=== PATIENT | male | born 1980 | race Caucasian/White ===

== ENCOUNTER 2017-03-13 07:53 | Day surgery (SDC) | payer MEDICAID, SELFPAY ==
[2017-03-12 11:28] VITALS: BMI 33.2
[2017-03-13] VITALS (10 sets, daily range): BP systolic 112–151; BP diastolic 63–92; PULSE 60–97; RESP 16–18; TEMP 36.1–36.4; O2SAT 95–99
--- NOTE | 2017-03-13 09:12 | P.PN_ITS ---
[facility] Anesthesia Checklist - Patient Identification Patient Identification: Arm Band, Verbal (Name & ) - Structural Data Admitted From: Home Planned Operative Procedure/s: excision back lession Consent for Planned Operative Procedure(s) Verified: Yes Verified Documents: Surgical Consent - Chart Verification Results Verified: CBC, BMP - Additional verifications Patient : No Anesthesia Reactions: No Hx Blood Transfusions: No Blood Transfusion Reaction: No Cephalosporin Allergy: No Previous Colonoscopy: No - Cardiovascular Assessment Heart Sounds: S1 & S2 Pulse Strength: Baseline Pulse Rhythm: Regular Peripheral Edema: No - Airway Assessment C-Spine Mobility Assessed: Yes TMJ Mobility Assessed: Yes Dentition: Good Dentition - Neurological Assessment Level of Consciousness: Awake, Alert, Appropriate Hx Seizures: No Numbness or tingling in extremities: No - Anesthesia Plan Anesthesia Risk discussed: Yes ASA Class: I Anesthesia Type: General [facility] Anesthesia HX I have reviewed the patient's past medical history: Yes Medical History: Denies:: Cancer, Diabetes Mellitus Type 1, Diabetes Mellitus Type 2, MRSA, Seizures Other Medical History: Denies: Blood Transfusion Reaction Other Surgeries: Yes: No Previous Surgery Amputation: No Fractures: Yes (r forearm) *Family Hx:: Cancer, Hypertension, Stroke
--- NOTE | 2017-03-13 10:32 | HMH.OPNOTE ---
Date of procedure: 03/13/17 Pre-op Diagnosis:: Mid back mass (cyst versus lipoma) -2.5 cm Post-op diagnosis:: same Procedure performed:: Excision of 2.5 cm mid back mass Surgeon:: Javier Basilio MD GRID CASTING MACHINE OPERATOR HELPER:: Misha Bell Anesthesia: LMA Estimated blood loss (mL): 10 Operative findings:: 2.5 cm excised in toto and passed off for pathologic evaluation. Operative note:: After informed consent was in, the patient was taken to the operating room and placed in the supine position. General anesthesia was induced and he was transferred to a right lateral decubitus position. His back was prepped and draped in a sterile fashion. After infiltration with local anesthetic an elliptical incision was made around the lesion. The deep subcutaneous tissue was dissected with a combination of scalpel and electrocautery. The lesion was excised in toto and passed off for pathologic evaluation. Electrocautery was utilized to achieve hemostasis. Skin was closed with interrupted 4-0 nylon and dressings were applied. The patient was transferred to recovery in stable condition after reversal of anesthetics. Condition: stable Disposition: PACU Specimens:: Mid back mass Complications:: No immediate
--- NOTE | 2017-03-13 10:35 | P.OP_ITS ---
Date of procedure: 03/13/17 Pre-op Diagnosis:: Mid back mass (cyst versus lipoma) -2.5 cm Post-op diagnosis:: same Procedure performed:: Excision of 2.5 cm mid back mass Surgeon:: Javier Basilio MD DIVINITY TEACHER:: Misha Bell Anesthesia: LMA Estimated blood loss (mL): 10 Operative findings:: 2.5 cm excised in toto and passed off for pathologic evaluation. Operative note:: After informed consent was in, the patient was taken to the operating room and placed in the supine position. General anesthesia was induced and he was transferred to a right lateral decubitus position. His back was prepped and draped in a sterile fashion. After infiltration with local anesthetic an elliptical incision was made around the lesion. The deep subcutaneous tissue was dissected with a combination of scalpel and electrocautery. The lesion was excised in toto and passed off for pathologic evaluation. Electrocautery was utilized to achieve hemostasis. Skin was closed with interrupted 4-0 nylon and dressings were applied. The patient was transferred to recovery in stable condition after reversal of anesthetics. Condition: stable Disposition: PACU Specimens:: Mid back mass Complications:: No immediate
--- NOTE | 2017-03-13 10:45 | P.PN_ITS ---
[facility] Anesthesia Record Part I Intake, IV Amount: 500 Estimated blood loss (mL): 10 Urine output (mL): 0 Blood Products used (#): none Blood Pressure: 112/63 SaO2: 97 Pulse Rate: 97 Respiratory Rate: 18 Temperature: 97.0 F Patient is:: Drowsy, Nasal O2 Stable to PACU at:: 10:43
--- NOTE | 2017-03-13 10:47 | P.PN_ITS ---
[facility] Anesthesia Record Part II Discharge Time: 11:13 Destination: Surgical Day Care (OP Surgery) PACU nurse assessment reviewed?: Yes Patient Condition:: Good Anesthesia Complications:: None
== END 2017-03-13 11:48 | disposition home or self-care (01) ==
LOC: OR 07:55
PROVIDERS: PCP Emergency Medicine; Visit Provider Surgery
PROC: (CPT 11403; principal; 2017-03-13 09:45)
DX: D23.5 Other benign neoplasm of skin of trunk (principal); R20.8 Other disturbances of skin sensation
CPT/HCPCS: 11403; 96374; J0131

== ENCOUNTER → 2021-09-17 06:58 | Outpatient (CLI) | payer MEDICAID, SELFPAY ==
[2021-09-17 19:11] LABS: Basophils # 0.1 K/mm3 (0-0.2); Basophils % 0.9 % (0.1-2.0); Eosinophils # 0.2 K/mm3 (0.0-0.4); Eosinophils % 1.8 % (0.1-12.0); Hematocrit 48.6 % (42.0-52.0); Hemoglobin 15.6 g/dL (14.1-18.0); Lymphocytes # 2.5 K/mm3 (0.7-4.5); Lymphocytes % 29.4 % (10-50); Mean Corpuscular HGB Conc 32.1 g/dL (31.8-35.4); Mean Corpuscular Hemoglobin 31.2 pg (27.0-31.2); Mean Corpuscular Volume 97.3 fl (80-94); Mean Platelet Volume 8.7 fl (7.4-10.4); Monocytes # 0.7 K/mm3 (0.1-1.0); Monocytes % 7.9 % (1.7-9.3); Neutrophils # 5.2 K/mm3 (1.8-7.8); Platelet Count 380 K/mm3 (142-424); Red Blood Count 4.99 M/mm3 (4.60-6.20); Red Cell Distribution Width 13.6 % (11.5-17.5); White Blood Count 8.6 K/mm3 (4.8-10.8)
[2021-09-17 19:15] LABS: Chloride 106 mmol/L (98-107); Potassium 4.6 mmoL/L (3.5-5.1); Sodium 141 mmol/L (136-145)
[2021-09-17 19:18] LABS: Alanine Aminotransferase 41 U/L (12-78); Albumin Level 4.9 g/dl (3.5-5.0); Albumin/Globulin Ratio 1.7 (1.1-1.8); Alkaline Phosphatase 58 U/L (38-126); Anion Gap 15.6 mEq/L (5-15); Aspartate Amino Transferase 37 U/L (17-59); Bilirubin,Total 0.6 mg/dl (0.2-1.3); Calcium 9.9 mg/dl (8.4-10.2); Carbon Dioxide 24 mmol/L (22.0-30.0); Cholesterol 177 mg/dl (140-200); Globulin 2.9 g/dL (1.3-3.2); Glucose 87 mg/dl (74-100); Total Protein,Serum 7.8 g/dl (6.3-8.2); Triglycerides 364 mg/dl (30-150); VLDL Cholesterol 73 mg/dL (0-40)
[2021-09-17 19:19] LABS: Chol/HDL Ratio 5.7 (1-3.5); HDL Cholesterol 31 mg/dl (40-60)
[2021-09-17 19:23] LABS: Blood Urea Nitrogen 15 mg/dl (9-20); Estimated Glomerular Filt Rate 94 ml/min (>60); GFR (African American) 114 ML/MIN (>60)
[2021-09-17 21:02] LABS: Vitamin B12 535 pg/mL (239-931)
[2021-09-17 21:06] LABS: Thyroid Stimulating Hormone 1.99 uIU/mL (0.465-4.68)
[2021-09-19 15:23] LABS: Direct LDL Cholesterol 96 mg/dL (100-129)
== END ==
PROVIDERS: PCP Physician Assistant; Visit Provider Physician Assistant
DX: R42 Dizziness and giddiness (principal); I10 Essential (primary) hypertension; F41.9 Anxiety disorder, unspecified; E66.9 Obesity, unspecified; Z68.36 Body mass index [BMI] 36.0-36.9, adult
CPT/HCPCS: 80053; 80061; 82306; 82607; 84443; 85025

== ENCOUNTER → 2022-04-15 23:50 | Outpatient (CLI) | payer MEDICAID, SELFPAY ==
[2022-04-15 18:24] LABS: Basophils # 0.1 K/mm3 (0-0.2); Basophils % 1.2 % (0.1-2.0); Eosinophils # 0.4 K/mm3 (0.0-0.4); Eosinophils % 4.4 % (0.1-12.0); Hematocrit 45.9 % (42.0-52.0); Hemoglobin 15.1 g/dL (14.1-18.0); Lymphocytes # 2.8 K/mm3 (0.7-4.5); Lymphocytes % 29.5 % (10-50); Mean Corpuscular HGB Conc 32.9 g/dL (31.8-35.4); Mean Corpuscular Hemoglobin 30.6 pg (27.0-31.2); Mean Corpuscular Volume 93.1 fl (80-94); Mean Platelet Volume 8.7 fl (7.4-10.4); Monocytes # 0.7 K/mm3 (0.1-1.0); Monocytes % 7.1 % (1.7-9.3); Neutrophils # 5.4 K/mm3 (1.8-7.8); Neutrophils % 57.9 % (37.0-80.0); Platelet Count 366 K/mm3 (142-424); Red Blood Count 4.93 M/mm3 (4.60-6.20); Red Cell Distribution Width 13.3 % (11.5-17.5); White Blood Count 9.3 K/mm3 (4.8-10.8)
[2022-04-15 18:56] LABS: Alanine Aminotransferase 45 U/L (12-78); Albumin Level 4.6 g/dl (3.5-5.0); Albumin/Globulin Ratio 1.8 (1.1-1.8); Alkaline Phosphatase 50 U/L (38-126); Anion Gap 10.6 mEq/L (5-15); Aspartate Amino Transferase 32 U/L (17-59); Bilirubin,Total 0.4 mg/dl (0.2-1.3); Blood Urea Nitrogen 13 mg/dl (9-20); Calcium 9.1 mg/dl (8.4-10.2); Carbon Dioxide 26 mmol/L (22.0-30.0); Chloride 105 mmol/L (98-107); Chol/HDL Ratio 5.9 (1-3.5); Cholesterol 188 mg/dl (140-200); Estimated Glomerular Filt Rate 83 ml/min (>60); GFR (African American) 101 ML/MIN (>60); Globulin 2.5 g/dL (1.3-3.2); Glucose 89 mg/dl (74-100); HDL Cholesterol 32 mg/dl (40-60); Potassium 4.6 mmoL/L (3.5-5.1); Sodium 137 mmol/L (136-145); Total Protein,Serum 7.1 g/dl (6.3-8.2)
[2022-04-15 19:06] LABS: Direct LDL Cholesterol 106.45 mg/dL (100-129)
[2022-04-15 19:07] LABS: Free T4 (Free Thyroxine) 0.97 ng/dl (0.78-2.19)
[2022-04-15 19:11] LABS: 25-OH Vitamin D, Total 25.5 ng/mL (30-100)
[2022-04-15 19:26] LABS: Thyroid Stimulating Hormone 2.36 uIU/mL (0.465-4.68); Triglycerides 418 mg/dl (30-150)
== END ==
PROVIDERS: PCP Physician Assistant; Visit Provider Physician Assistant
DX: R53.83 Other fatigue (principal); K59.00 Constipation, unspecified; E03.9 Hypothyroidism, unspecified; E55.9 Vitamin D deficiency, unspecified
CPT/HCPCS: 80053; 80061; 82306; 84439; 84443; 85025

== ENCOUNTER 2023-03-13 22:57 | Outpatient (CLI) | payer MEDICAID, SELFPAY ==
[2023-03-13 17:51] LABS: Basophils # 0.1 K/mm3 (0-0.2); Basophils % 0.9 % (0.1-2.0); Eosinophils # 0.2 K/mm3 (0.0-0.4); Eosinophils % 2.7 % (0.1-12.0); Hematocrit 45.5 % (42.0-52.0); Hemoglobin 15.5 g/dL (14.1-18.0); Lymphocytes % 30.6 % (10-50); Mean Corpuscular HGB Conc 33.9 g/dL (31.8-35.4); Mean Corpuscular Hemoglobin 31.8 pg (27.0-31.2); Mean Corpuscular Volume 93.8 fl (80-94); Mean Platelet Volume 8.8 fl (7.4-10.4); Monocytes # 0.4 K/mm3 (0.1-1.0); Monocytes % 6.3 % (1.7-9.3); Neutrophils # 3.9 K/mm3 (1.8-7.8); Neutrophils % 59.5 % (37.0-80.0); Platelet Count 330 K/mm3 (142-424); Red Blood Count 4.85 M/mm3 (4.60-6.20); Red Cell Distribution Width 13.1 % (11.5-17.5); White Blood Count 6.6 K/mm3 (4.8-10.8)
[2023-03-13 17:55] LABS: Alanine Aminotransferase 50 U/L (12-78); Albumin Level 4.7 g/dl (3.5-5.0); Albumin/Globulin Ratio 1.7 (1.1-1.8); Alkaline Phosphatase 53 U/L (38-126); Anion Gap 12.8 mEq/L (5-15); Aspartate Amino Transferase 33 U/L (17-59); Bilirubin,Total 0.5 mg/dl (0.2-1.3); Blood Urea Nitrogen 16 mg/dl (9-20); Calcium 9.8 mg/dl (8.4-10.2); Carbon Dioxide 30 mmol/L (22.0-30.0); Chloride 103 mmol/L (98-107); Creatine Kinase 113 U/L (55-170); Estimated Glomerular Filt Rate 83 ml/min (>60); GFR (African American) 100 ML/MIN (>60); Globulin 2.7 g/dL (1.3-3.2); Glucose 110 mg/dl (74-100); Potassium 4.8 mmoL/L (3.5-5.1); Sodium 141 mmol/L (136-145); Total Protein,Serum 7.4 g/dl (6.3-8.2); Uric Acid 6.7 mg/dl (3.5-8.5)
[2023-03-13 18:00] LABS: C-Reactive Protein 6.6 mg/L (0-4)
[2023-03-13 18:12] LABS: Erythrocyte Sedimentation Rate 5 mm/hr (0-15)
[2023-03-16 12:30] LABS: Anti-Centromere B Antibodies <0.2 AI (0.0-0.9); Anti-DNA (DS) Ab Qn <1 IU/mL (0-9); Anti-Jo-1 <0.2 AI (0.0-0.9); Anti-Smith Antibody <0.2 AI (0.0-0.9); Antichromatin Antibodies <0.2 AI (0.0-0.9); Antiscleroderma-70 Antibodies <0.2 AI (0.0-0.9); RNP Antibodies <0.2 AI (0.0-0.9); Sjogren's Anti-SS-A <0.2 AI (0.0-0.9); Sjogren's Anti-SS-B <0.2 AI (0.0-0.9)
[2023-03-16 13:09] LABS: Anti-Cyclic Citrullinated Pept 8 units (0-19)
== END 2023-03-13 23:59 ==
LOC: LAB.DROPOF 22:57
PROVIDERS: PCP Physician Assistant; Visit Provider Physician Assistant
DX: M25.561 Pain in right knee (principal); M25.562 Pain in left knee; M25.50 Pain in unspecified joint; I10 Essential (primary) hypertension
CPT/HCPCS: 80053; 82550; 84550; 85025; 85651; 86140; 86200; 86225; 86235; 86431

== ENCOUNTER 2023-03-25 10:49 | Outpatient (CLI) | payer MEDICAID, SELFPAY ==
--- NOTE | 2023-03-25 10:49 | US_ITS ---
FINAL REPORT TECHNIQUE: Ultrasound images of the kidneys and bladder were obtained. CLINICAL HISTORY: hypertension FINDINGS: The right kidney measures 10.0 cm in length. It is normal in echogenicity. There is no hydronephrosis. The left kidney measures 10.7 cm in length. It is normal in echogenicity. There is no hydronephrosis. The spleen is unremarkable. IMPRESSION: Normal renal ultrasound. Reviewed, Interpreted and Dictated by Richard Blanco III, MD Transcribed by Dora Hawkins Authenticated and [facility]
== END 2023-03-25 23:59 ==
LOC: RAD 10:49
PROVIDERS: PCP Physician Assistant; Visit Provider Physician Assistant
DX: I10 Essential (primary) hypertension (principal)
CPT/HCPCS: 76770

== ENCOUNTER 2023-04-08 08:06 | Outpatient (CLI) | payer MEDICAID, SELFPAY ==
--- NOTE | 2023-04-08 08:09 | CA_ITS ---
FINAL REPORT TECHNIQUE: Grayscale, color Doppler and duplex Doppler ultrasound of the kidneys, aorta and renal arteries was performed. Multiple velocities were measured. CLINICAL HISTORY: HTN COMPARISON: None FINDINGS: Aorta velocity: 117 cm/sec Right kidney: 10.3 cm. No evidence of hydronephrosis or mass. Right intrarenal RI: 0.73 Right renal artery velocity: 139 cm/sec. Right RAR (Renal artery-Aortic Ratio): 1.2 Left Kidney: 10.6 cm. No evidence of hydronephrosis or mass. Left intrarenal RI: 0.72 Left renal artery velocity: 183 cm/sec. Left RAR (Renal Artery-Aortic Ratio): 1.6 IMPRESSION: No evidence of significant renal artery stenosis. CT angiogram or postcontrast MR angiogram would be more sensitive for evaluation of possible renal artery stenosis. Reviewed, Interpreted and Dictated by Thalia Byers MD Transcribed by Melanie Schroeder Authenticated and [facility]
== END 2023-04-08 23:59 ==
LOC: RT 08:07
PROVIDERS: PCP Physician Assistant; Visit Provider Physician Assistant
DX: I10 Essential (primary) hypertension (principal); Z79.899 Other long term (current) drug therapy
CPT/HCPCS: 93976

== ENCOUNTER 2023-04-29 08:21 | Outpatient (CLI) | payer MEDICAID, SELFPAY ==
--- NOTE | 2023-04-29 08:21 | US_ITS ---
FINAL REPORT CLINICAL HISTORY: post prandial vomiting FINDINGS: Insert RIGHT UPPER QUADRANT ULTRASOUND Sonographic images of the right upper quadrant were obtained. The pancreas is partially obscured. There is fatty infiltration of the liver. The gallbladder appears normal without evidence of gallstones. The common duct measures 3 mm. There is a 6 mm echogenic focus in the right kidney, may represent a stone. IMPRESSION: Fatty liver. Possible right renal stone. Reviewed, Interpreted and Dictated by Richard Blanco III, MD Transcribed by Dora Hawkins Authenticated and . [facility]
== END 2023-04-29 23:59 ==
LOC: RAD 08:21
PROVIDERS: PCP Physician Assistant; Visit Provider Physician Assistant
DX: R11.10 Vomiting, unspecified (principal)
CPT/HCPCS: 76705

== ENCOUNTER 2023-05-22 10:26 | Outpatient (CLI) | payer MEDICAID, SELFPAY ==
--- NOTE | 2023-05-22 10:26 | NM_ITS ---
FINAL REPORT CLINICAL HISTORY: right upper quadrant pain 10:45 am 8.80 mci tc choletec 2.5 mcg of cck no pain during cck COMPARISON: None FINDINGS: Sequential anterior projection images of the abdomen were obtained after the intravenous injection of 8.80 mCi technetium 99m Choletec. There is normal uptake of radiotracer by the liver. The bile ducts and bowel activity are visualized by 5 minutes. Gallbladder activity is seen by 20 minutes. After 1 hour, 2.5 ?g of CCK was injected intravenously for calculation of gallbladder ejection fraction. The gallbladder ejection fraction is 87 %, which is within normal limits. IMPRESSION: No evidence of cystic duct or bile duct obstruction. Normal gallbladder ejection fraction of 87 %. Reviewed, Interpreted and Dictated by Richard Blanco III, MD Transcribed by Ann Mcdermott Authenticated and [facility]
[2023-05-22] MEDS: SODIUM CHLORIDE 0.9% 10ML SYR (RAD ONLY) 10 ML IV (11:47)
[2023-05-22] MEDS: SINCALIDE 2.5 MCG in 0.9 % SODIUM CHLORIDE 50 ML 100 MCG IV (11:47)
[2023-05-22] MEDS: ISOTOPE CHOLETECH;1 DOSE (UP TO 15 MCI) IV (11:47)
== END 2023-05-22 23:59 | disposition home or self-care (01) ==
LOC: RAD 10:26
PROVIDERS: PCP Physician Assistant; Visit Provider Physician Assistant
DX: R10.11 Right upper quadrant pain (principal)
CPT/HCPCS: 78227; A9537; J2805

== ENCOUNTER 2023-06-18 12:21 | Outpatient (CLI) | payer MEDICAID, SELFPAY ==
--- NOTE | 2023-06-18 12:28 | XR_ITS ---
FINAL REPORT CLINICAL HISTORY: right knee pain FINDINGS: Right knee Three views were obtained. There is no acute fracture or dislocation. The joint spaces appear normal. There is chronic calcification in the region of the distal patellar tendon. IMPRESSION: No acute process. Reviewed, Interpreted and Dictated by Richard Blanco III, MD Transcribed by Dora Hawkins Authenticated and [facility]
--- NOTE | 2023-06-18 12:28 | XR_ITS ---
FINAL REPORT CLINICAL HISTORY: left knee pain FINDINGS: Left knee Three views were obtained. There is no acute fracture or dislocation. The joint spaces appear normal. No soft tissue abnormality is identified. IMPRESSION: No acute process. Reviewed, Interpreted and Dictated by Richard Blanco III, MD Transcribed by Dora Hawkins Authenticated and [facility]
== END 2023-06-18 23:59 | disposition home or self-care (01) ==
LOC: RAD 12:23
PROVIDERS: PCP Physician Assistant; Visit Provider Orthopaedic Surgery
DX: M25.561 Pain in right knee (principal); M25.562 Pain in left knee
CPT/HCPCS: 73562

== ENCOUNTER 2024-09-01 11:51 | Outpatient (CLI) | payer MEDICAID, SELFPAY ==
--- OUTSIDE RECORDS SUMMARY | 2024-09-01 11:54 | XMS_ITS | Encounter Summary ---
Author Organization [employer] ([place], [place], [place], [place]) Address [address] [place] [address] Care Team Providers Care Contract Engineer Name Role Phone Unavailable Primary Care Provider Unavailabl e Encounter Details Date Type Department Care Team (Late st Contact Info) Description 11/05/2019 Transcribed Document [facility] Family Medicine [facility] [place] [address] ProviderKelley MD [address] [place] [address] [id number] Social History Tobacco Use Types Packs/Day Years Used Date Smoking Tobacco: Never Assessed Sex and Gender Information Value Date Recorded Sex Assigned at Male 08/06/2021 8:45 PM CDT Legal Sex Male 8:45 PM CDT Gender Identity Male 08/06/2021 8:45 PM CDT Sexual Orientation Not on file documented as of this encounter Miscellaneous Notes * Cerner Conversion Note - Historical ProviderMD - 11/05/2019 1:45 PM CDT documented in this encounter Plan of Treatment Not on file documented as of this encounter Visit Diagnoses Not on filedocumented in this encounter
--- OUTSIDE RECORDS SUMMARY | 2024-09-01 11:54 | XMS_ITS | Encounter Summary ---
Author Organization [employer] ([place], [place], [place], [place]) Address [address] [place] [address] Care Team Providers Care Program Specialist Name Role Phone Unavailable Primary Care Provider Unavailabl e Encounter Details Date Type Department Care Team (Late st Contact Info) Description 11/05/2019 Transcribed Document [facility] Family Medicine [facility] [address] ProviderKelley MD [address] [place] [address] [id number] Social History Tobacco Use Types Packs/Day Years Used Date Smoking Tobacco: Never Assessed Sex and Gender Information Value Date Recorded Sex Assigned at Male 08/06/2021 8:45 PM CDT Legal Sex Male 8:45 PM CDT Gender Identity Male 08/06/2021 8:45 PM CDT Sexual Orientation Not on file documented as of this encounter Miscellaneous Notes * Cerner Conversion Note - Kelley ProviderMD - 11/05/2019 2:08 PM CDT ED Discharge Entered On: 11/05/2019 14:09 EDT Performed On: 11/05/2019 14:08 EDT by MIRI ESTRELLA RN Discharge Process Patient Disposition : Discharge Personal Belongings With Patient : Yes Patient Education Completed : Yes Teaching Evaluation : Verbalizes understanding Link to Valuables and Belongings form : No IV Discontinued : Not applicable MIRI ESTRELLA RN - 11/05/2019 14:08 EDT ED Discharge Discharge To : Home with ambulatory/outpatient follow-up Name of Receiving Facility/Provider : See instructions Mode Of Departure : Ambulatory Accompanied By : Significant other Discharge Instructions Reviewed With, Opportunity For Questions Given : Patient Prescriptions Given to Patient : Yes Number of Prescriptions Given : 1 MIRI ESTRELLA RN - 11/05/2019 14:08 EDT Electronically signed by Cintia [facility] Conversion Turning Machine Set Up Operator Cerner at 05/26/2022 3:02 PM CDT documented in this encounter Plan of Treatment Not on file documented as of this encounter Visit Diagnoses Not on filedocumented in this encounter
--- OUTSIDE RECORDS SUMMARY | 2024-09-01 11:54 | XMS_ITS | Clinical Summary ---
Author Organization [employer] ([place], [place], [place], [place]) Address [address] [place] [address] Care Team Providers Care Senior Animal Trainer Name Role Phone Unavailable Primary Care Provider Unavailabl e Social History Tobacco Use Types Packs/Day Years Used Date Smoking Tobacco: Never Assessed Sex and Gender Information Value Date Recorded Sex Assigned at Male 08/06/2021 8:45 PM CDT Legal Sex Male 8:45 PM CDT Gender Identity Male 08/06/2021 8:45 PM CDT Sexual Orientation Not on file Plan of Treatment Not on file
--- OUTSIDE RECORDS SUMMARY | 2024-09-01 11:54 | XMS_ITS | Referral Summary ---
Author Organization [employer] ([place], [place], [place], [place]) Address [address] [place] [address] Care Team Providers Care Tile Fitter Name Role Phone Unavailable Primary Care Provider [...]
--- OUTSIDE RECORDS SUMMARY | 2024-09-01 11:54 | XMS_ITS | Encounter Summary ---
Author Organization [employer] ([place], [place], [place], [place]) Address [address] [place] [address] Care Team Providers Care Insurance Clerk Name Role Phone Unavailable Primary Care Provider Unavailabl e Encounter Details Date Type Department Care Team (Late st Contact Info) Description 11/05/2019 Transcribed Document [facility] [place] [facility] [place] [address] ProviderKelley MD [address] [place] [address] [id number] Social History Tobacco Use Types Packs/Day Years Used Date Smoking Tobacco: Never Assessed Sex and Gender Information Value Date Recorded Sex Assigned at Male 08/06/2021 8:45 PM CDT Legal Sex Male 8:45 PM CDT Gender Identity Male 08/06/2021 8:45 PM CDT Sexual Orientation Not on file documented as of this encounter Miscellaneous Notes * Cerner Conversion Note - Kelley ProviderMD - 11/05/2019 12:59 PM CDT ED Triage Entered On: 11/05/2019 13:25 EDT Performed On: 11/05/2019 13:20 EDT by MIRI ESTRELLA RN ED Triage Across the Room Chief Complaint : Pt c/o possible bicep rupture after attempting to load a 50 lb grill into bed of a truck. Triage Date/Time : 11/05/2019 13:20 EDT MIRI ESTRELLA RN - 11/05/2019 13:20 EDT DCP GENERIC CODE Tracking Acuity : 4 - Non - Urgent Tracking Group : [facility] ED MIRI ESTRELLA RN - 11/05/2019 13:20 EDT Mode of Arrival : Ambulatory Transported to ED by : Private vehicle To Room Via : Ambulate Accompanied By : Significant other ED Vital Signs : Document Height & Weight : Document ED Allergies : Document ED Reason for Visit : Document MIRI ESTRELLA RN - 11/05/2019 13:20 EDT Infectious Disease History Has the patient ever been tested for COVID-19? : No, Patient stated Does patient have symptoms of COVID-19? : No COVID19 Screening : No Experiencing Infectious Disease Symptoms : No symptoms Physical contact outside [place] in the last 30 days : No Infectious Disease History : Chicken pox/Shingles Tuberculosis Symptoms : None MIRI ESTRELLA RN - 11/05/2019 13:20 EDT Vital Signs ED Temperature Source : Oral Temperature Mode : Fahrenheit Temperature, Fahrenheit : 98.3 Deg F ED Pain : Yes Clinical Temperature, C : 36.8 Deg C Oxygen Therapy Mode : Room air Peripheral Pulse Rate : 73 bpm Respiratory Rate : 15 Breaths/Min Systolic Blood Pressure : 152 mmHg (HI) Diastolic Blood Pressure : 97 mmHg (HI) Oxygen Saturation : 97 % MIRI ESTRELLA RN - 11/05/2019 13:20 EDT Allergy (As Of: 11/05/2019 13:25:49 EDT) Allergies (Active) Lortab Estimated Onset Date: Unspecified ; Reactions: Itching ; Created By: MIRI ESTRELLA RN; Reaction Status: Active ; Category: Drug ; Substance: Lortab ; Type: Allergy ; Updated By: MIRI ESTRELLA RN; Reviewed Date: 11/05/2019 13:23 EDT Diagnosis Control ED (As Of: 11/05/2019 13:25:49 EDT) Problems(Active) Biceps rupture, distal (SNOMED CT :4907993628 ) Name of Problem: Biceps rupture, distal ; Recorder: MIRI ESTRELLA RN; Confirmation: Confirmed ; Classification: Medical ; Code: [id number] ; Contributor System: [employer] ; Last Updated: 11/05/2019 13:24 EDT ; Life Cycle Date: 11/05/2019 ; Life Cycle Status: Active ; Vocabulary: SNOMED CT Diagnoses(Active) Arm pain-swelling Date: 11/05/2019 ; Diagnosis Type: Reason For Visit ; Confirmation: Complaint of ; Clinical Dx: Arm pain-swelling ; Classification: Medical ; Clinical Service: Emergency medicine ; Code: PNED ; Probability: 0 ; Diagnosis Code: [id number] ED Height and Weight Height Source : Stated Height Entry Format : [place] Height, Feet : 6 ft(Converted to: 183 cm, 72 Inch) Height, Inches : 0 Inch(Converted to: 0 ft 0 Inch, 0.00 cm) Clinical Height : 182.88 cm Weight Source, ED : Critical estimated dosing weight Weight Entry Format : [place] Weight, Pounds : 245 lb Clinical Dosing Weight : 111.36 kg Body Surface Area (BSA) : 2.32 m2 Body Mass Index : 33.3 kg/m2 (HI) [place] Body Weight (IBW) : 76.59 kg MIRI ESTRELLA RN - 11/05/2019 13:20 EDT Pain Assessment Pain Assessment : Initial assessment Pain Scale Used : 0-10 Scale Location : Arm, left MIRI ESTRELLA RN - 11/05/2019 13:20 EDT Pain Scale Intensity : 7 MIRI ESTRELLA RN - 11/05/2019 13:20 EDT Image 4 - Images currently included in the form version of this document have not been included in the text rendition version of the form. Electronically signed by Taylor Chamberlain Conversion Filter Washer And Presser Cerner at 05/26/2022 3:18 PM CDT documented in this encounter Plan of Treatment Not on file documented as of this encounter Visit Diagnoses Not on filedocumented in this encounter
--- OUTSIDE RECORDS SUMMARY | 2024-09-01 11:54 | XMS_ITS | Clinical Summary ---
Author Organization [facility] Address [address] [place] [address] Care Team Providers Care Lens Finisher Name Role Phone Wanda Lee Primary Care Provider [phone] Allergies No known active allergies Medications promethazine-de xtromethorphan (PROMETHAZINE-D M) 6.25-15 MG/5ML syrupIndication s:Influenza A Take 5 mL by mouth At Night As Needed for Cough. 75 mL 0 Active brompheniramine -pseudoephedrin e-DM 30-2-10 MG/5ML syrupIndication s:Influenza A Take 10 mL by mouth 4 (Four) Times a Day As Needed for Congestion or Cough. 200 mL 0 Active diclofenac (VOLTAREN) 50 MG EC tablet Take 1 tablet by mouth 3 (Three) Times a Day. 15 tablet 3 Active Active Problems No known active problems Family History Medical History Relation Name Comments No Known Problems Father No Known Problems Mother Relation Name Status Comments Father Mother Social History Tobacco Use Types Packs/Day Years Used Date Smoking Tobacco: Former Cigarettes 0.5 10 2 - 2011 Smokeless Tobacco: Never Alcohol Use Standard Drinks/Week Comments Yes 0 (1 standard drink = 0.6 oz pur e alcohol) 2/day Abuse Screen Answer Date Recorded Feels Unsafe at Home or Work/School no 01/29/2023 Feels Threatened by Someone no 01/10 Does Anyone Try to Keep You From Having Contact with Others or Doing Things Outside Your Home? no 01/29/2023 Physical Signs of Abuse Present no 01/29/2023 Housing Stability Answer Date Recorded Current Living Arrangements Not on file 11/09 Potentially Unsafe Housing Conditions Not on arlin e 11/20/2022 Family and Community Support Answer Baron e Recorded Help with Day-to-Day Activities Not on file 11/20/2022 Lonely or Isolated Not on file 11/20/2022 Employment Answer Date Recorded Do you want help finding or keeping work or a león b? Not on file 11/20/2022 Disabilities Answer Date Recorded Concentrating, Remembering, or Making Decisions Difficulty Not on file 11/20/2022 Doing Errands Independently Difficulty Not on fi le 11/20/2022 Education Answer Date Recorded Help with school or training? Not on file Preferred Language Not on file 11/20/2022 Sex and Gender Information Value Date Recorded Sex Assigned at Not on file Legal Sex Male 4:05 PM EDT Gender Identity Not on file Sexual Orientation Not on file Last Filed Vital Signs Vital Sign Reading Time Taken Comments Blood Pressure 162/109 01/29/2023 6:00 PM EST Pulse 89 01/29/2023 6:00 PM EST Temperature 36.9 C (98.4 F) 01/29/2023 6:00 PM EST Respiratory Rate 16 01/29/2023 6:00 PM EST Oxygen Saturation 99% 01/29/2023 6:00 PM EST Inhaled Oxygen Concentration - - Weight 122 kg (270 lb) 01/29/2023 6:00 PM EST Height 182.9 cm (6') 01/29/2023 6:00 PM EST Body Mass Index 36.62 01/29/2023 6:00 PM EST Plan of Treatment Health Maintenance Due Date Last Done Comments TDAP/TD VACCINES (1 - Tdap) 2001 ANNUAL PHYSICAL 04/25/2019 HEPATITIS C SCREENING 04/25/2019 COVID-19 Vaccine (2023-2 5 season) 2023 INFLUENZA VACCINE 11/09/2024 Pneumococcal Vaccine 0-49 Aged Out No longer eligible based on patient's age to complete this topic Insurance [employer] Care Teams Lens Finisher Relationship Specialty Start Date End Date Wanda Lee PA PCP - General Physician Marzipan Maker 01/29/23
--- OUTSIDE RECORDS SUMMARY | 2024-09-01 11:54 | XMS_ITS | Encounter Summary ---
Author Organization [employer] ([place], [place], [place], [place]) Address [address] [place] [address] Care Team Providers Care Elevator Attendant Name Role Phone Unavailable Primary Care Provider Unavailabl e Encounter Details Date Type Department Care Team (Late st Contact Info) Description 11/05/2019 Transcribed Document [facility] [place] Family Medicine [facility] [place] [address] ProviderKelley MD [address] [place] [address] [id number] Social History Tobacco Use Types Packs/Day Years Used Date Smoking Tobacco: Never Assessed Sex and Gender Information Value Date Recorded Sex Assigned at Male 08/06/2021 8:45 PM CDT Legal Sex Male 8:45 PM CDT Gender Identity Male 08/06/2021 8:45 PM CDT Sexual Orientation Not on file documented as of this encounter Miscellaneous Notes * Cerner Conversion Note - Historical ProviderMD - 11/05/2019 1:41 PM CDT Patient: PRATEEK MOHR JR Age: 39 years Sex: Male : 1980 Associated Diagnoses: Rupture of left biceps tendon Author: ANTHONY PARDO MD Basic Information Additional information: Chief Complaint from Nursing Triage Note : Chief Complaint 11/05/2019 13:20 EDT Chief Complaint Pt c/o possible bicep rupture after attempting to load a 50 lb grill into bed of a truck. . History of Present Illness The patient presents with left, Patient was lifting heavy object when he felt a pop and had pain of the left elbow. Patient states it feels the same as when he ruptured his right biceps tendon.. Location: Left elbow. Radiating pain: none. The character of symptoms is pain and swelling. The degree of pain is moderate. The degree of swelling is minimal. There are exacerbating factors including movement and palpation. The relieving factor is immobilization. Risk factors consist of Ruptured right biceps tendon a few years ago and had it surgically repaired.. Therapy today: none. Associated symptoms: denies numbness. Review of Systems Constitutional symptoms: No fever, no chills, no sweats, no weakness, no fatigue. Skin symptoms: No rash, Eye symptoms: Vision unchanged, no pain, no discharge, no blurred vision. ENMT symptoms: No ear pain, no sore throat, no nasal congestion. Respiratory symptoms: No shortness of breath, no cough. Cardiovascular symptoms: No chest pain, no palpitations, no syncope. Gastrointestinal symptoms: No abdominal pain, no nausea, no vomiting, no diarrhea. Genitourinary symptoms: No dysuria, no hematuria. Musculoskeletal symptoms: Joint pain, No back pain, Neurologic symptoms: No headache, no dizziness, no numbness, no weakness. Health Status Allergies: Allergic Reactions (Selected) Severity Not Documented Lortab- Itching.. Medications: (Selected) Inpatient Medications Ordered [facility] 5325: 1 Tab, Oral, 1-Time. Past Medical/ Family/ Social History Surgical history: No active procedure history items have been selected or recorded., Reviewed as documented in chart. Family history: No family history items have been selected or recorded., Reviewed as documented in chart. Social history: Social & Psychosocial Habits No Data Available , Reviewed as documented in chart. Problem list: Active Problems (1) Biceps rupture, distal , per nurse's notes. Physical Examination Vital Signs Vital Signs/Vital Measures 11/05/2019 13:20 EDT Systolic Blood Pressure 152 mmHg HI Diastolic Blood Pressure 97 mmHg HI Temperature Source Oral Temperature Mode Fahrenheit Temperature, Fahrenheit 98.3 Deg F Clinical Temperature, C 36.8 Deg C Peripheral Pulse Rate 73 bpm Respiratory Rate 15 Breaths/Min Oxygen Saturation 97 % Oxygen Therapy Mode Room air . Measurements 11/05/2019 13:20 EDT Height Source Stated Height Entry Format [place] Height/Length, YORUBA (ft) 6 ft Height/Length YORUBA 0 Inch CLINICALHEIGHT 182.88 cm [place] Body Weight 76.59 kg Weight Source, ED Critical estimated dosing weight Weight Entry Format [place] Weight French lb 245 lb CLINICALWEIGHT 111.36 kg Body Surface Area (BSA) 2.32 m2 Body Mass Index 33.3 kg/m2 HI . Oxygen Saturation 11/05/2019 13:20 EDT Oxygen Saturation 97 % . General: Alert, no acute distress. Skin: No rash, normal for ethnicity, Not cyanotic, Head: Normocephalic. Eye: Sclera: not icteric. Cardiovascular Respiratory: Respirations are non-labored. Musculoskeletal: Proximal upper extremity: Left, anterior, elbow, tenderness, Pain at the distal biceps tendon on the anterior left elbow, difficulty flexing the forearm, bulge and swelling of the left biceps.. Psychiatric: Cooperative. Medical Decision Making Documents reviewed: Emergency department nurses' notes. Elbow x-ray findings Within normal limits, normal alignment, no fracture, interpretation by Emergency Physician. Impression and Plan Diagnosis Rupture of left biceps tendon - Discharge, Medical Plan Condition: Stable. Disposition: Discharged Admit/Transfer/Discharge: Discharge (Order): Start: 11/05/2019 13:58 EDT, Discharge to: Home. Prescriptions: Prescription [facility]: Percocet 5/325 oral tablet (Prescribe): 1 Tab, Oral, Q4H, PRN: for pain, 18 Tab, 0 Refill(s). Patient was given the following educational materials: Distal Biceps Tendon Tear. Follow up with: NICCI AVINA Within 2 to 3 days. Counseled: Patient, Family, Regarding diagnosis, Regarding diagnostic results, Regarding treatment plan, Regarding prescription, Patient indicated understanding of instructions. Notes: Patient presented with signs and symptoms consistent with distal bicep tendon rupture. Close neurovascular intact. Discussed with Ortho Dr. Ny, he will follow-up with the patient and have him appointment made with their elbow and hand specialist. Patient given sling for comfort, Percocet prescription, and clear Ortho follow-up instructions. Given clear return precautions.. Electronically signed by Taylor Chamberlain Conversion Medical Sales Consultant Cerner at 05/26/2022 3:19 PM CDT documented in this encounter Plan of Treatment Not on file documented as of this encounter Visit Diagnoses Not on filedocumented in this encounter
--- OUTSIDE RECORDS SUMMARY | 2024-09-01 11:54 | XMS_ITS | Encounter Summary ---
Author Organization [employer] ([place], [place], [place], [place]) Address [address] [place] [address] Care Team Providers Care Drum Sealer Name Role Phone Unavailable Primary Care Provider Unavailabl e Encounter Details Date Type Department Care Team (Late st Contact Info) Description 11/05/2019 Transcribed Document [facility] [place] Family Medicine [place] [address] ProviderKelley MD [address] [place] [id number] [id number] Social History Tobacco Use Types Packs/Day Years [...] ProviderMD - 11/05/2019 12:59 PM CDT ED Assessment Entered On: 11/05/2019 13:37 EDT Performed On: 11/05/2019 13:36 EDT by MIRI ESTRELLA RN ED Quick Look Assessment Level of Consciousness : Alert Affect/Behavior : Cooperative Orientation : Oriented x 4 Skin Temperature : Warm Skin Description : Dry MIRI ESTRELLA RN - 11/05/2019 13:36 EDT ED General-Functional Assess Information Obtained From : Patient Communication Barrier : None Primary Language : Gu[place]ese Any Spiritual/Cultural Needs or Requests : No Currently in Unsafe Situation : No MIRI ESTRELLA RN - 11/05/2019 13:36 EDT Social Habits Smoking Status : Never (less than 100 in lifetime; none in last 30 days) Smokeless Tobacco Status : Never Desires Tobacco Cessation Calc : 0 MIRI ESTRELLA RN - 11/05/2019 13:36 EDT Social History (As Of: 11/05/2019 13:37:32 EDT) Cardiovascular ASMT, ED Cardiovascular Assessment WDL : [facility] MIRI ESTRELLA RN - 11/05/2019 13:36 EDT Respiratory Respiratory Assessment WDL : [facility] MIRI ESTRELLA RN - 11/05/2019 13:36 EDT Musculoskeletal Musculoskeletal Assessment WDL : [facility] with exceptions Musculoskeletal Assessment Comment : Swelling noted to left bicep. Unable to flex left bicep. + able to fully extend. +PMS Brisk cap refill MIRI ESTRELLA RN - 11/05/2019 13:36 EDT Neurologic ASMT, ED Neurologic Assessment WDL : [facility] Lan Coma Scale Link : Open [facility] MIRI ESTRELLA RN - 11/05/2019 13:36 EDT Lan Coma Lan Best Motor Response : Obey commands Lan Best Verbal Response : Oriented Lan Eye Opening Response : Spontaneous [place] Coma Score : 15 MIRI ESTRELLA RN - 11/05/2019 13:36 EDT documented in this encounter Plan of Treatment Not on file documented as of this encounter Visit Diagnoses Not on filedocumented in this encounter
--- OUTSIDE RECORDS SUMMARY | 2024-09-01 11:54 | XMS_ITS | Encounter Summary ---
Author Organization [employer] ([place], [place], [place], [place]) Address [address] [place] [address] Care Team Providers Care Software Developer Intern Name Role Phone Unavailable Primary Care Provider Unavailabl e Encounter Details Date Type Department Care Team (Late st Contact Info) Description 11/05/2019 Transcribed Document [facility] Family Medicine [facility] [place] [place] [address] ProviderKelley MD [address] [place] [address] Social History Tobacco Use Types Packs/Day Years Used Date Smoking Tobacco: Never Assessed Sex and Gender Information Value Date Recorded Sex Assigned at Male 08/06/2021 8:45 PM CDT Legal Sex Male 8:45 PM CDT Gender Identity Male 08/06/2021 8:45 PM CDT Sexual Orientation Not on file documented as of this encounter Miscellaneous Notes * Cerner Conversion Note - Kelley Bonilla MD - 11/05/2019 2:03 PM CDT [place] [address] PRATEEK MOHR JR :1980 Visit Time:11/05/2019 Your Visit Summary Your Care Team Primary Provider: ANTHONY PARDO Secondary Provider: Your Diagnosis Arm pain-swelling Rupture of left biceps tendon Medical Information You may obtain a copy of your Emergency Department visit from Medical Records by calling the hospital phone number listed above and asking to be directed to the Medical Records Department. If you had special tests, such as EKG???s or X-rays, the interpretation of your tests given to you by the Emergency Department Physician is a preliminary report. Some fractures and illnesses fail to show up on preliminary tests. These will be reviewed again and we will call you if there are any new suggestions. If your symptoms continue notify your physician. After you leave, you should follow the instructions provided. What to do next Follow-Up Appointments Follow Up with NICCI AVINA When Within 2 to 3 days Where: [address] [facility] [address] [place] [address]- Business (1) Allergies Lortab (Itching) Immunizations This Visit No Immunizations Found Medications What How Much When Instructions Next Dose acetaminophen-oxyCODONE (Percocet 5/ 325 oral tablet) 1 Tablet(s) Oral Every 4 Hours as needed for for pain Printed Prescription The home medications listed are only as accurate as the information you provided. Please continue taking all of your medications prescribed by your Primary Care Provider unless specifically told to change or discontinue the medication. Please direct any questions regarding your home medications to your Primary Care Provider. Take your medications faithfully. Do NOT skip medication. Do NOT stop taking medications without the direction of a physician. Carry a list of your medications with you at all times, and take this medication list with you to your first follow up visit. Report any side effects. Avoid herbal remedies unless discussed with your physician. As part of your treatment plan, your physician may have prescribed a limited course of a controlled substance. This medication may be given to help people with moderate or severe pain or for other medical conditions, but there are risks involved with treatment. Common side effects may include nausea, constipation, drowsiness, sweating, itching, dry mouth, and rash. More serious side effects may include cognitive and motor impairment, like problems with thinking, concentrating, alertness, and movement (e.g. slowed reflexes), and driving and operating heavy machinery can be dangerous. It is important for you to talk to your physician if you have these side effects or questions. These controlled substances can produce physical dependence and be habit-forming if taken for an extended period of time, which means that the body has gotten used to them and may experience withdrawal symptoms if they are abruptly stopped. Withdrawal symptoms can include runny nose, sweating, goose bumps, diarrhea, abdominal cramping, rapid heartbeat, difficulty sleeping, and nervousness. Please dispose of unused and medications per pharmacy guidance. Test Results Laboratory or Other Results This Visit (last charted value for your 11/05/2019 visit) No Laboratory or Other Results This Visit [employer] Distal Biceps Tendon Tear The distal biceps tendon is a strong cord of tissue that connects the biceps muscle???which is the muscle on the front of the upper arm???to a bone (radius) in the elbow. Distal biceps tendon tear is an injury that may include either of the following: ??? A complete tear (rupture) in the tendon, causing the tendon to completely separate from the radius. When this happens, the biceps muscle pulls up (retracts) toward the shoulder. ??? A partial tear in the tendon that causes the tendon to partially separate from the radius. This condition can interfere with your ability to turn your hand palm-up (supination) and bend (flex) your elbow. It is often treated with surgery, and recovery may take 4???8 months. What are the causes? This condition is usually caused by suddenly straightening the elbow while the biceps muscle is tightened (contracted). This could happen, for example, while lifting or carrying a heavy object that suddenly falls or shifts position. What increases the risk? The following factors may make you more likely to develop this condition: ??? Being a man who is 30???50 years old. ??? Smoking. ??? Using steroids. What are the signs or symptoms? Symptoms of this condition may include: ??? A feeling like a snap or a pop in the elbow at the time of injury. ??? Pain, swelling, and bruising in the front of the elbow. ??? Weakness in the arm when doing certain movements, such as: ? Lifting or carrying objects. ? Rotating the forearm, such as when you turn a screwdriver. ? Bending the elbow. ??? A bulge in the upper arm. You may feel this in the front of the arm, the inside of the arm, or both. ??? Limited range of motion of the elbow and forearm. How is this diagnosed? This condition may be diagnosed based on: ??? Your symptoms and medical history. ??? A physical exam. Your health care provider may test your range of motion by having you do arm movements. ??? Tests, such as: ? X-rays. ? MRI. ? Ultrasound. How is this treated? Treatment for this condition may include: ??? Medicines to help relieve pain and inflammation. ??? A splint or brace to immobilize your elbow. ??? Wearing a sling to help rest your arm. ??? Resting from sports and intense physical activity. ??? Surgery to reattach your tendon to your radius. This is the most common treatment. ??? Physical therapy. Follow these instructions at home: If you have a splint, brace, or sling: ??? Wear the splint, brace, or sling as told by your health care provider. Remove it only as told by your health care provider. ??? Loosen the splint, brace, or sling if your fingers tingle, become numb, or turn cold and blue. ??? Keep the splint, brace, or sling clean and dry. Bathing ??? Do not take baths, swim, or use a hot tub until your health care provider approves. Ask your health care provider if you may take showers. You may only be allowed to take sponge baths. ??? If you have a splint, brace, or sling that is not waterproof: ? Do not let it get wet. ? Cover it with a watertight covering when you take a bath or shower. Managing pain, stiffness, and swelling ??? If directed, put ice on the injured area: ? Put ice in a plastic bag. ? Place a towel between your skin and the bag. ? Leave the ice on for 20 minutes, 2???3 times a day. ??? If directed, apply heat to the affected area before you exercise or as often as told by your health care provider. Use the heat source that your health care provider recommends, such as a moist heat pack or a heating pad. ? Place a towel between your skin and the heat source. ? Leave the heat on for 20???30 minutes. ? Remove the heat if your skin turns bright red. This is especially important if you are unable to feel pain, heat, or cold. You may have a greater risk of getting burned. ??? Move your fingers often to avoid stiffness and to lessen swelling. ??? Raise (elevate) the injured area above the level of your heart while you are sitting or lying down. Activity ??? Return to your normal activities as told by your health care provider. Ask your health care provider what activities are safe for you. ??? Until your health care provider approves: ? Do not lift or carry anything with your injured arm. ? Do not use the affected limb to support your body weight. ? Do not participate in contact sports. ??? Avoid activities that cause pain or make your condition worse. ??? Do exercises as told by your physical therapist or health care provider. General instructions ??? Take lsmt-vvr-ciojjzi and prescription medicines only as told by your health care provider. ??? If you have a splint, do not put pressure on any part of the splint until it is fully hardened. This may take several hours. ??? Ask your health care provider when it is safe to drive if you have a splint, brace, or sling on your arm. ??? Do not use any products that contain nicotine or tobacco, such as cigarettes, e-cigarettes, and chewing tobacco. If you need help quitting, ask your health care provider. ??? Keep all follow-up visits as told by your health care provider. This is important. Contact a health care provider if: ??? Your splint or brace causes pain or numbness. Get help right away if: ??? You develop severe pain. ??? You develop numbness or tingling in your hand. ??? Your hand feels unusually cold. ??? Your fingernails turn a dark color, such as blue or randle. Summary ??? Distal biceps tendon tear is an injury that may involve a complete or partial tear of the tendon. ??? This condition is usually caused by suddenly straightening the elbow while the biceps muscle is tightened. ??? Treatment may include medicines, rest, physical therapy, immobilization, or surgery. This information is not intended to replace advice given to you by your health care provider. Make sure you discuss any questions you have with your health care provider. Document Released: 01/26/2006 Document Revised: 12/29/2018 Document Reviewed: 06/21/2018 [employer] Patient Education ?? 2020 [employer] Emergency Awareness and Preventative Care STROKE is an EMERGENCY Every Minute Counts Act FAST and Check for these signs: FACE Does the face look uneven? ARM Does one arm drift down? SPEECH Does their speech sound strange? TIME Call at any sign of stroke Stroke Risk Factors Atrial Fibrillation (irregular heartbeat) Diabetes Family history of stroke Heart Disease Heavy alcohol use High Blood Pressure High Cholesterol Physical inactivity and obesity Smoking Cigarette Smoking The facts are clear, cigarette smoking will shorten your life. Smoking can cause many illnesses along the way. As a healthcare provider, we recommend that you stop smoking. Assistance with quitting is available by contacting 5-143-RBNE-NOW. This is a free resource providing counseling, support, and referral. Or you may contact your personal physician. [place] Suicide Prevention Lifeline: The National Suicide Prevention Lifeline is a national network of local crisis centers that provides free and confidential emotional support to people in suicidal crisis or emotional distress 24 hours a day, 7 days a week. Don't Wait! Stop a Heart Attack Before it Starts What is a heart attack? A heart attack is damage or to a part of the heart from severely decreased or lack of blood flow to the heart. Over time, arteries can become narrow from the buildup of fat and cholesterol, which is called plaque. The plaque can rupture causing a blood clot to form. When the blood clot forms, the artery can become severely narrowed or completely blocked, causing a heart attack. Heart attack is the leading cause of in the [place]. 85% of muscle damage occurs within the first 2 hours. Delay in the recognition of heart attack symptoms increases the chances of . Know the early symptoms of a heart attack: Nausea Feeling of fullness in chest Jaw Pain Pain that travels down one or both arms Fatigue/being tired Anxiety Back Pain Chest pressure, squeezing, or discomfort Shortness of breath Sweating, or a cold sweat Feeling of impending doom There are unusual signs of a heart attack, too! Women, the elderly, and diabetics may present with atypical symptoms: Fainting/dizziness Weakness Confusion Risk Factors for a Heart Attack Some heart disease risk factors, such as age and family history, cannot be changed. Others, like smoking and lack of exercise, can be changed. Smoking High Cholesterol High Blood Pressure Family History Obesity Age Gender (Males are at higher risk) Lack of Exercise Diabetes Diet Stress Excessive Alcohol Intake If you or someone you know is experiencing the signs and symptoms of a heart attack, DON???T DELAY. Call immediately and seek help. If someone collapses, perform CPR! Do not attempt to drive if you are having symptoms of heart attack. Hands-Only CPR Why Hands-Only CPR? Hands-Only CPR has been shown to be as effective as conventional CPR for cardiac arrests that occur outside of a hospital. Survival depends on immediately receiving CPR from someone nearby. How do you perform Hands-Only CPR? There are two easy steps: Call 9-1-1 if you see a teen or adult collapse Push hard and fast in the center of the chest at a beat of 100 beats per minute. Save a life! 4 WAYS TO GET AHEAD OF SEPSIS SEPSIS is a MEDICAL EMERGENCY. Time matters! Infections put you and your family at risk for a life-threatening condition called sepsis. Sepsis is the body's extreme response to an infection. It is life-threatening, and without timely treatment, sepsis can rapidly lead to tissue damage, organ failure, and . Sepsis happens when an infection you already have-in your skin, lungs, urinary tract or somewhere else-triggers a chain reaction throughout your body. 1 PREVENT INFECTIONS Take good care of chronic conditions. Talk to your doctor about getting the recommended vaccines. 2 PRACTICE GOOD HYGIENE Wash your hands frequently. Keep cuts or open sores clean and covered until they are healed. 3 KNOW THE SYMPTOMS Confusion or disorientation Shortness of breath High heart rate Fever, shivering, or feeling very cold Extreme pain or discomfort Clammy or sweaty skin 4 ACT FAST Get medical care IMMEDIATELY if you suspect sepsis or if you have an infection that is not getting better or is getting worse. To learn more about sepsis and how to prevent infections, visit www.cdc.gov/sepsis. The examination and treatment you have received in the Emergency Department has been done to provide an appropriate evaluation and stabilizing treatment on an emergency basis only. Given the limited resources, it is not meant to be a substitute for complete medical care. The follow-up doctor you named will receive a copy of your records and all test reports. IT IS IMPORTANT THAT YOU SCHEDULE A FOLLOW-UP APPOINTMENT AND ARE RE-EVALUATED. You should report any new complaints, symptoms, or remaining problems at that time. IT IS IMPOSSIBLE FOR THE EMERGENCY DEPARTMENT TO RECOGNIZE AND TREAT ALL ELEMENTS OF INJURY OR ILLNESS IN A SINGLE VISIT. If you have been referred to a specialist physician, it means that we believe you may have a condition that requires the expertise of a specialist. These physicians work in partnership with the hospital and have agreed to see referred patients in their office for further evaluation. KEEP IN MIND THAT THE SPECIALIST HAS HIS/HER OWN OFFICE POLICIES WHICH MAY REQUIRE PROPER INSURANCE OR PAYMENT UP FRONT BEFORE THE SPECIALIST WILL SEE YOU. It is your responsibility to call the specialist physician to make an appointment. We do not have the ability to refer patients to specialists/physicians that work with specific insurance companies. Please be advised that all financial charges or billing practices are determined by that practice, not the hospital. If your insurance company requires that you see a specialist from their approved list, it is your responsibility to contact your insurance company to make those arrangements. It is also your responsibility to follow any other requirements of your insurance company necessary to obtain coverage for claims submitted. We will bill your insurance; however, you are responsible today for any co-pay amounts. You will receive a separate bill for any services you may have received including: emergency, radiology, or pathology physicians. Patient Name:PRATEEK MOHR JR I have received this information and was given the opportunity to ask questions. Patient/Slot Operations Director Name: Patient/Slot Operations Director Signature: Relationship to Patient: Clinician/Hospital Slot Operations Director Signature: Please Provide a Telephone Number Where You Can Be Reached: Is it Permissible To Leave a Message? Date: Electronically signed by [facility] Conversion Bi Specialist Zaira at 05/26/2022 3:27 PM CDT documented in this encounter Plan of Treatment Not on file documented as of this encounter Visit Diagnoses Not on filedocumented in this encounter
--- OUTSIDE RECORDS SUMMARY | 2024-09-01 11:54 | XMS_ITS | Encounter Summary ---
Author Organization [employer] ([place], [place], [place], [place]) Address [address] [place] [address] Care Team Providers Care Flight Manager Name Role Phone Unavailable Primary Care Provider Unavailabl e Encounter Details Date Type Department Care Team (Late st Contact Info) Description 11/05/2019 Transcribed Document [facility] Family Medicine [facility] [place] [place] [address] ProviderKelley MD [address] [place], [place] [id number] Social History Tobacco Use Types Packs/Day Years Used Date Smoking Tobacco: Never Assessed Sex and Gender Information Value Date Recorded Sex Assigned at Male 08/06/2021 8:45 PM CDT Legal Sex Male 8:45 PM CDT Gender Identity Male 08/06/2021 8:45 PM CDT Sexual Orientation Not on file documented as of this encounter Miscellaneous Notes * Cerner Conversion Note - Historical ProviderMD - 11/05/2019 12:59 PM CDT [place] Suicide Severity Rating Scale (C-SSRS) Entered On: 11/05/2019 13:38 EDT Performed On: 11/05/2019 13:36 EDT by MIRI ESTRELLA RN [place] Suicide Severity Rating Scale (C-SSRS) CSSRS Past Month Wish to be : No CSSRS Past Month Suicidal Thoughts : No CSSRS Lifetime Suicide Behavior : No Suicide Severity Rating Score : 0 Suicide Severity Rating : No Additional Care Required at this time MIRI ESTRELLA RN - 11/05/2019 13:36 EDT documented in this encounter Plan of Treatment Not on file documented as of this encounter Visit Diagnoses Not on filedocumented in this encounter
--- OUTSIDE RECORDS SUMMARY | 2024-09-01 11:54 | XMS_ITS | Encounter Summary ---
Author Organization [employer] ([place], [place], [place], [place]) Address [address] [place] [address] Care Team Providers Care Electrical Contractor Name Role Phone Unavailable Primary Care Provider Unavailabl e Encounter Details Date Type Department Care Team (Late st Contact Info) Description 11/05/2019 Transcribed Document [facility] Family Medicine [facility] [address] ProviderKelley MD [address] [place] [id number] Social History Tobacco Use Types Packs/Day Years Used Date Smoking Tobacco: Never Assessed Sex and Gender Information Value Date Recorded Sex Assigned at Male 08/06/2021 8:45 PM CDT Legal Sex Male 8:45 PM CDT Gender Identity Male 08/06/2021 8:45 PM CDT Sexual Orientation Not on file documented as of this encounter Miscellaneous Notes * Cerner Conversion Note - Historical ProviderMD - 11/05/2019 4:12 PM CDT CR Elbow Min 3 Vws LT Ordered: 11/05/2019 Auth (Verified) Reason for Exam: PAIN 11/05/2019 15:29 11/05/2019 16:12 (JAYE SOLARES PA-C) Reviewed by Provider, No further action required X1 documented in this encounter Plan of Treatment Not on file documented as of this encounter Visit Diagnoses Not on filedocumented in this encounter
[2024-09-01 12:51] LABS: Hematocrit 42.4 % (42.0-52.0); Hemoglobin 14.4 g/dL (14.1-18.0); Immature Granulocytes % 0.5 %; Mean Corpuscular HGB Conc 34.0 g/dL (31.8-35.4); Mean Corpuscular Hemoglobin 31.1 pg (27.0-31.2); Mean Corpuscular Volume 91.6 fl (80-94); Nucleated Red Blood Cells % 0 %; Platelet Count 286 K/mm3 (142-424); Red Blood Count 4.63 M/mm3 (4.60-6.20); Red Cell Distribution Width-SD 42.1 fL; White Blood Count 7.9 K/mm3 (4.8-10.8)
[2024-09-01 13:23] LABS: Alanine Aminotransferase 29 U/L (12-78); Albumin Level 4.6 g/dl (3.5-5.0); Albumin/Globulin Ratio 2.2 (1.1-1.8); Alkaline Phosphatase 48 U/L (38-126); Anion Gap 10.7 mEq/L (5-15); Aspartate Amino Transferase 28 U/L (17-59); Bilirubin,Total 0.2 mg/dl (0.2-1.3); Blood Urea Nitrogen 13 mg/dl (9-20); Calcium 10.2 mg/dl (8.4-10.2); Carbon Dioxide 29 mmol/L (22.0-30.0); Chloride 102 mmol/L (98-107); Cholesterol 173 mg/dl (140-200); Creatinine,Serum 1.00 mg/dl (0.66-1.25); Estimated Glomerular Filt Rate 82 ml/min (>60); GFR (African American) 99 ML/MIN (>60); Globulin 2.1 g/dL (1.3-3.2); Glucose 87 mg/dl (74-100); HDL Cholesterol 30 mg/dl (40-60); Potassium 4.7 mmoL/L (3.5-5.1); Sodium 137 mmol/L (136-145); Total Protein,Serum 6.7 g/dl (6.3-8.2)
[2024-09-01 13:30] LABS: Triglycerides 413 mg/dl (30-150)
[2024-09-01 13:40] LABS: 25-OH Vitamin D, Total 34.9 ng/mL (30-100)
[2024-09-01 13:52] LABS: Thyroid Stimulating Hormone 1.98 uIU/mL (0.465-4.68)
== END 2024-09-01 23:59 | disposition home or self-care (01) ==
LOC: LAB 11:51
PROVIDERS: PCP Nurse Practitioner Family; Visit Provider Nurse Practitioner Family
DX: E55.9 Vitamin D deficiency, unspecified (principal); I10 Essential (primary) hypertension
CPT/HCPCS: 36415; 80053; 80061; 82306; 84443; 85025

== ENCOUNTER → 2024-09-07 08:08 | Outpatient (CLI) | payer MEDICAID, SELFPAY ==
--- OUTSIDE RECORDS SUMMARY | 2024-09-14 08:21 | XMS_ITS | Encounter Summary ---
Author Organization [email or web address] ([place], [place], [place], [place]) Address [address] [place] [address] Care Team Providers Care Field Marketing Manager Name Role Phone Unavailable Primary Care Provider Unavailabl e Encounter Details Date Type Department Care Team (Late st Contact Info) Description 11/05/2019 Transcribed Document [facility] Family Medicine [facility] [place] [address] ProviderKelley MD [address] [place], [place] [id number] Social History Tobacco Use Types Packs/Day Years [...] Historical ProviderMD - 11/05/2019 12:59 PM CDT [place] Suicide Severity Rating Scale (C-SSRS) Entered On: 11/05/2019 13:38 EDT Performed On: 11/05/2019 13:36 EDT by MIRI ESTRELLA RN [place] Suicide Severity Rating Scale (C-SSRS) CSSRS Past Month Wish to be : No CSSRS Past Month Suicidal Thoughts : No CSSRS Lifetime Suicide Behavior : No Suicide Severity Rating Score : 0 Suicide Severity Rating : No Additional Care Required at this time MIRI ESTRELLA RN - 11/05/2019 13:36 EDT Electronically signed by Taylor Chamberlain Conversion Land Conservation Specialist Cerner at 05/26/2022 3:21 PM CDT documented in this encounter Plan of Treatment Not on file documented as of this encounter Visit Diagnoses Not on filedocumented in this encounter
--- OUTSIDE RECORDS SUMMARY | 2024-09-14 08:21 | XMS_ITS | Encounter Summary ---
Author Organization [employer] ([place], [place], [place], [place]) Address [address] [place] [address] Care Team Providers Care Filters Assembler Name Role Phone Unavailable Primary Care Provider Unavailabl e Encounter Details Date Type Department Care Team (Late st Contact Info) Description 11/05/2019 Transcribed Document [facility] Family Medicine [facility] [place] [address] ProviderKelley MD [address] [place] [id number] Social History Tobacco Use Types Packs/Day Years [...] - Non - Urgent Tracking Group : [facility] ED MIRI ESTRELLA RN - [...] EDT) Problems(Active) Biceps rupture, distal (SNOMED CT :[id number] ) Name of Problem: Biceps rupture, distal ; Recorder: MIRI ESTRELLA RN; Confirmation: Confirmed ; Classification: Medical ; Code: [id number] ; Contributor System: Verold ; Last Updated: 11/05/2019 13:24 EDT ; Life Cycle Date: 11/05/2019 ; Life Cycle Status: Active ; Vocabulary: SNOMED CT Diagnoses(Active) Arm pain-swelling Date: 11/05/2019 ; Diagnosis Type: Reason For Visit ; Confirmation: Complaint of ; Clinical Dx: Arm pain-swelling ; Classification: Medical ; Clinical Service: Emergency medicine ; Code: PNED ; Probability: 0 ; Diagnosis Code: [id number] ED Height and Weight Height Source : Stated Height Entry Format : [place] Height, Feet : 6 ft(Converted to: 183 cm, 72 Inch) Height, Inches : 0 Inch(Converted to: 0 ft 0 Inch, 0.00 cm) Clinical Height : 182.88 cm Weight Source, ED : Critical estimated dosing weight Weight Entry Format : [place] Weight, Pounds : 245 lb Clinical Dosing Weight : 111.36 kg Body Surface Area (BSA) : 2.32 m2 Body Mass Index : 33.3 kg/m2 (HI) [place] Body Weight (IBW) : 76.59 kg MIRI [...] form. Electronically signed by Taylor Chamberlain Conversion Feed Preparation Operator Cerner at 05/26/2022 3:18 PM CDT documented in this encounter Plan of Treatment Not on file documented as of this encounter Visit Diagnoses Not on filedocumented in this encounter
--- OUTSIDE RECORDS SUMMARY | 2024-09-14 08:21 | XMS_ITS | Encounter Summary ---
Author Organization [employer] ([place], [place], [place], [place]) Address [address] [place] [address] Care Team Providers Care High School Director Name Role Phone Unavailable Primary Care Provider Unavailabl e Encounter Details Date Type Department Care Team (Late st Contact Info) Description 11/05/2019 Transcribed Document [facility] [place] [facility] [place] [address] ProviderKelley MD [address] [place] [address] [phone] Social History Tobacco Use Types Packs/Day Years [...] Communication Barrier : None Primary Language : Cambodian Any Spiritual/Cultural Needs or Requests : No [...] Cardiovascular ASMT, ED Cardiovascular Assessment WDL : [facility] MIRI ESTRELLA RN - 11/05/2019 13:36 EDT Respiratory Respiratory Assessment WDL : [facility] MIRI ESTRELLA RN - 11/05/2019 13:36 EDT Musculoskeletal Musculoskeletal Assessment WDL : [facility] with exceptions Musculoskeletal Assessment Comment : Swelling noted to left bicep. Unable to flex left bicep. + able to fully extend. +PMS Brisk cap refill MIRI ESTRELLA RN - 11/05/2019 13:36 EDT Neurologic ASMT, ED Neurologic Assessment WDL : [facility] Lan Coma Scale Link : [facility] MIRI ESTRELLA RN - 11/05/2019 13:36 EDT [place] Coma [place] Best Motor Response : Obey commands Lan Best Verbal Response : Oriented [place] Eye Opening Response : Spontaneous Lan Coma Score : 15 MIRI ESTRELLA RN - 11/05/2019 13:36 EDT documented in this encounter Plan of Treatment Not on file documented as of this encounter Visit Diagnoses Not on filedocumented in this encounter
--- OUTSIDE RECORDS SUMMARY | 2024-09-14 08:21 | XMS_ITS | Encounter Summary ---
Author Organization [employer] ([place], [place], [place], [place]) Address [address] [place] [address] Care Team Providers Care Wave Guide Assembler Name Role Phone Unavailable Primary Care Provider Unavailabl e Encounter Details Date Type Department Care Team (Late st Contact Info) Description 11/05/2019 Transcribed Document [facility] [place] [facility] [place] [address] ProviderKelley MD [address] [place] [address] [phone] Social History Tobacco Use Types Packs/Day Years [...] Historical ProviderMD - 11/05/2019 1:45 PM CDT Electronically signed by Sidney Chamberlain Conversion Fitness Sales Associate Cassiusner at 05/26/2022 3:22 PM CDT documented in this encounter Plan of Treatment Not on file documented as of this encounter Visit Diagnoses Not on filedocumented in this encounter
--- OUTSIDE RECORDS SUMMARY | 2024-09-14 08:21 | XMS_ITS | Encounter Summary ---
Author Organization [employer] ([place], [place], [place], [place]) Address [address] [place] [address] Care Team Providers Care Director [employer]ery [employer] Name Role Phone Unavailable Primary Care Provider Unavailabl e Encounter Details Date Type Department Care Team (Late st Contact Info) Description 11/05/2019 Transcribed Document [facility] [place] [address] ProviderKelley MD [address] [place] [address] [phone] Social History Tobacco Use Types Packs/Day Years [...] Lortab- Itching.. Medications: (Selected) Inpatient Medications Ordered [facility] 5325: 1 Tab, Oral, 1-Time. Past Medical/ [...] EDT Height Source Stated Height Entry Format [place] Height/Length, RWANDAN (ft) 6 ft Height/Length RWANDAN 0 Inch CLINICALHEIGHT 182.88 cm [place] Body Weight 76.59 kg Weight Source, ED Critical estimated dosing weight Weight Entry Format [place] Weight [place] lb 245 lb CLINICALWEIGHT 111.36 kg Body [...] 13:58 EDT, Discharge to: Home. Prescriptions: Prescription Records Analyst Pharmacy: Percocet 5/325 oral tablet (Prescribe): 1 [...] precautions.. Electronically signed by Taylor Chamberlain Conversion Operations Management Trainee Cerner at 05/26/2022 3:19 PM CDT documented in this encounter Plan of Treatment Not on file documented as of this encounter Visit Diagnoses Not on filedocumented in this encounter
--- OUTSIDE RECORDS SUMMARY | 2024-09-14 08:22 | XMS_ITS | Encounter Summary ---
Author Organization [employer] ([place], [place], [place], [place]) Address [address] [place] [address] Care Team Providers Care Payroll Administrative Assistant Name Role Phone Unavailable Primary Care Provider Unavailabl e Encounter Details Date Type Department Care Team (Late st Contact Info) Description 11/05/2019 Transcribed Document [facility] [place] [facility] [place] [address] ProviderKelley MD [address] [place] [address] [phone] Social History Tobacco Use Types Packs/Day Years [...] 11/05/2019 14:08 EDT Electronically signed by Cintia [facility] Conversion Helper Coordinator Cerner at 05/26/2022 3:02 PM CDT documented in this encounter Plan of Treatment Not on file documented as of this encounter Visit Diagnoses Not on filedocumented in this encounter
--- OUTSIDE RECORDS SUMMARY | 2024-09-14 08:22 | XMS_ITS | Referral Summary ---
Author Organization [employer] ([place], [place], [place], [place]) Address [address] [place] [address] Care Team Providers Care Director Of Radio Services Name Role Phone Unavailable Primary Care Provider [...]
--- OUTSIDE RECORDS SUMMARY | 2024-09-14 08:22 | XMS_ITS | Encounter Summary ---
Author Organization [employer] ([place], [place], [place], [place]) Address [address] [place] [address] Care Team Providers Care Retail Visual Merchandiser Name Role Phone Unavailable Primary Care Provider Unavailabl e Encounter Details Date Type Department Care Team (Late st Contact Info) Description 11/05/2019 Transcribed Document [facility] [place] [facility] [place] [address] ProviderKelley MD [address] [place] [address] [phone] Social History Tobacco Use Types Packs/Day Years [...]
--- OUTSIDE RECORDS SUMMARY | 2024-09-14 08:22 | XMS_ITS | Clinical Summary ---
Author Organization [employer] ([place], [place], [place], [place]) Address [address] [place] [address] Care Team Providers Care Np Name Role Phone Unavailable Primary Care Provider [...]
--- OUTSIDE RECORDS SUMMARY | 2024-09-14 08:22 | XMS_ITS | Encounter Summary ---
Author Organization [employer] ([place], [place], [place], [place]) Address [address] [place] [address] Care Team Providers Care Package Clerk Name Role Phone Unavailable Primary Care Provider Unavailabl e Encounter Details Date Type Department Care Team (Late st Contact Info) Description 11/05/2019 Transcribed Document [facility] [place] [address] ProviderKelley MD [address] [place] [phone] Social History Tobacco Use Types Packs/Day [...] Bonilla MD - 11/05/2019 2:03 PM CD[place] [address] PRATEEK MOHR JR :1980 Visit Time:11/05/2019 [...] When Within 2 to 3 days Where: [address] [facility] [address] [place] [address]- Business (1) Allergies Lortab (Itching) Immunizations This [...] health care provider. General instructions ??? Take awps-cjo-hhuzaad and prescription medicines only as told by [...] 01/26/2006 Document Revised: 12/29/2018 Document Reviewed: 06/21/2018 [employer] Patient Education ?? 2020 [employer] Emergency Awareness and Preventative Care STROKE [...] Assistance with quitting is available by contacting 5-611-WWYX-NOW. This is a free resource providing counseling, support, and referral. Or you may contact your personal physician. [employer] Suicide Prevention Lifeline: The National Suicide Prevention [...] was given the opportunity to ask questions. Patient/Political Geographer Name: Patient/Political Geographer Signature: Relationship to Patient: Clinician/Hospital Political Geographer Signature: Please Provide a Telephone Number Where You Can Be Reached: Is it Permissible To Leave a Message? Date: Electronically signed by Cintia [facility] Conversion Beauty Consultant Zaira at 05/26/2022 3:27 PM CDT documented in this encounter Plan of Treatment Not on file documented as of this encounter Visit Diagnoses Not on filedocumented in this encounter
== END ==
LOC: SL 09-14 08:09
PROVIDERS: PCP Nurse Practitioner Family; Visit Provider Nurse Practitioner Family
DX: G47.33 Obstructive sleep apnea (adult) (pediatric) (principal); G47.36 Sleep related hypoventilation in conditions classified elsewhere; R40.0 Somnolence
CPT/HCPCS: G0399